=== PATIENT | male | born 2000 | race Two or more races ===

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

== ENCOUNTER 2024-02-03 09:33 | Emergency (ER) | payer OTHER ==
[~2024-02-03] VITALS: Ht 162.6 cm; Wt 55.0 kg
[2024-02-03 10:02] VITALS: BP 151/93; PULSE 105; RESP 18; O2SAT 98
== END 2024-02-03 11:42 | disposition left against medical advice (07) ==
LOC: ER 09:33
DX: R23.8 Other skin changes (principal); Z53.21 Procedure and treatment not carried out due to patient leaving prior to being seen by health care provider

== ENCOUNTER 2024-03-02 22:54 | Emergency (ER) | payer OTHER ==
[~2024-03-02] VITALS: Ht 162.6 cm; Wt 58.1 kg
[2024-03-02 23:00] VITALS: TEMP 97.8
[2024-03-02] MEDS: fentaNYL CITRATE 100 MCG/2 ML VL IV ONE (23:54)
[2024-03-03] VITALS: BP 143/93; PULSE 94; RESP 15; O2SAT 94
[2024-03-03] MEDS: ONDANSETRON HCL 4 MG/2 ML VIAL IV ONE (00:14)
[2024-03-03] MEDS: ONDANSETRON HCL 4 MG/2 ML VIAL ONE (00:15)
== END 2024-03-03 00:30 | disposition home or self-care (01) ==
LOC: ER 22:54
DX: M24.412 Recurrent dislocation, left shoulder (principal); F17.210 Nicotine dependence, cigarettes, uncomplicated; F15.90 Other stimulant use, unspecified, uncomplicated; W18.39XA Other fall on same level, initial encounter; Y93.B2 Activity, push-ups, pull-ups, sit-ups; Y92.89 Other specified places as the place of occurrence of the external cause; Y99.8 Other external cause status
CPT/HCPCS: 23650; 73020; 73030; 96374; 96375; 99284; J2405; J3010; 94762

== ENCOUNTER 2024-04-02 16:29 | Emergency (ER) | payer OTHER ==
[~2024-04-02] VITALS: Ht 162.6 cm; Wt 60.8 kg
[2024-04-02 17:00] VITALS: PULSE 103; RESP 14; TEMP 97.9; O2SAT 96
[2024-04-02] MEDS: ETOMIDATE (2MG/ML) 20ML VIAL IV ONE ×2 (17:15→17:20)
[2024-04-02] MEDS ORDERED: HYDR-4902 PO (17:38)
[2024-04-02 18:00] VITALS: BP 143/89; PULSE 100; RESP 18; O2SAT 100
== END 2024-04-02 18:10 | disposition home or self-care (01) ==
LOC: ER 16:29
DX: S43.005A Unspecified dislocation of left shoulder joint, initial encounter (principal); F17.210 Nicotine dependence, cigarettes, uncomplicated; F12.10 Cannabis abuse, uncomplicated; W03.XXXA Other fall on same level due to collision with another person, initial encounter; Y93.89 Activity, other specified; Y92.89 Other specified places as the place of occurrence of the external cause; Y99.8 Other external cause status
CPT/HCPCS: 23650; 73020; 99152

== ENCOUNTER 2024-06-12 22:03 | Emergency (ER) | payer OTHER ==
[~2024-06-12] VITALS: Ht 162.6 cm; Wt 54.5 kg
[2024-06-12] MEDS: KETAMINE 50mg/ML 10ml Vial (500mg/10ml) IV ONE (00:39)
[~2024-06-12 22:03] MED LIST: HYDR-4902 PO
--- NOTE | 2024-06-12 22:41 | ED.PDOC ---
Musculoskeletal HPI Comments 24-year-old male came to ER due to left shoulder pain. Patient was doing wrestling earlier, when he accidentally popped his left shoulder. States he dislocated his left shoulder 3 times already. Patient feels and knows that he dislocated his left shoulder again Chief Complaint: Upper Extremity Time Seen by MD: 22:39 Primary Care Provider: UNKNOWN Reviewed Notes: Nurses Notes Allergies: Coded Allergies: NO KNOWN ALLERGIES (Unverified , 01/06/13) Home Meds Active Scripts Ibuprofen (Ibuprofen) 600 Mg Tab, 1 TAB PO TID PRN for 5 Days, #15 TAB Prov:RICO REBOLLEDO MD 06/13/24 Acetaminophen (Acetaminophen Er) 650 Mg Tab, 650 MG PO TIDPRN PRN for 5 Days, #1 5 TAB Prov:RICO REBOLLEDO MD 06/13/24 Hydrocodone-Acetaminophen (Hydrocodone Bitartrate/AC 5-325 mg) 1 Tab Tab, 1 TAB PO Q8HP PRN for 5 Days, #15 TAB Prov:GENEVA SLAUGHTER MD 04/02/24 Information Source: Patient Mode of Arrival: Ambulatory Location: Left Extremity Location: Shoulder Timing: Hours Prehospital treatment: None Severity: Moderate Able to Move Extremity: No Bear Weight: Limited Pain: Moderate Hand Dominance: Right Mechanism: Hyperextension Circumstances: Sporting Onset of Symptoms: After Trauma Symptoms: Swelling, Pain Associated signs and symptoms: Shoulder pain (left) Review of Systems REVIEW OF SYSTEMS: No fever, no chills, or fatigue HEENT: No sore throat, no earache, no congestion, no neck pain. Cardiac: No chest pain. No palpitations. Lungs: No shortness of breath, no cough. GI: No nausea, no vomiting, no diarrhea, no constipation, no abdominal pain : No dysuria, frequency, or urgency. No hematuria. Musculoskeletal: (+) left shoulder pain and deformity, no extremity edema. Skin: No rash, no itching. Neuro: No headache, no dizziness, no weakness Vital Signs Vital Signs Date Time Temp Pulse Resp B/P (MAP) Pulse Ox O2 Delivery O2 Flow Rate FiO2 06/13/24 01:50 104 19 133/83 (100) 100 06/13/24 00:38 2.0 28 06/12/24 23:10 Room Air* 06/12/24 23:10 98.7 98.7 Physical Exam General: Awake, alert and oriented. No acute distress. Skin: Skin in warm, dry and intact without rashes or lesions. HEENT: The head is normocephalic and atraumatic. Conjunctivae are clear without exudates or hemorrhage. Sclera is non-icteric. Neck: Normal range of motion. No JVD. Cardiac: Regular rate Respiratory: No signs of respiratory distress. No Stridor. Extremities: Left shoulder with obvious deformity at the deltoid areas suggestive of anterior dislocation. distal pulses, sensation and strength intact. Neurological: The patient is awake, alert and oriented to person, place, and time with normal speech. Speech is clear. There is no facial asymmetry. Psychiatric: Appropriate mood and affect. Good judgement and insight. No visual or auditory hallucinations. No suicidal or homicidal ideation. Past Medical History PAST MEDICAL HISTORY: Denies Past Medical History (Other): Left shoulder dislocation Surgical History: Denies all surgeries Family History Family History: Reviewed,noncontributory to illness, Unknown Social History Smoker: Cigarettes Alcohol: Occasionally Drugs: Marijuana Lives In: Home Was a procedure done? Was a procedure done?: Yes Sedation Sedation?: Yes Informed consent obtained: Yes Sedation start time: 00:39 Sedation end time: 01:00 Sedation total time: 20 min Reduction Indication: Dislocation (left shoulder) Sedation: Consents obtained, Sedation as ordered Intra-articular anesthetic nicole: Yes Post-reduction x-ray show: Reduction Informed consent obtained: Yes Risks/benefits/alt described: Yes Differential Diagnosis EXT Differential Diagnosis: Fracture, Sprain, Dislocation X-Ray, Labs, Meds, VS Vital Signs Date Time Temp Pulse Resp B/P (MAP) Pulse Ox O2 Delivery O2 Flow Rate FiO2 06/13/24 01:50 104 19 133/83 (100) 100 06/13/24 01:05 111 16 136/93 (107) 99 06/13/24 00:59 109 19 150/97 (114) 96 06/13/24 00:56 119 22 136/77 (96) 97 06/13/24 00:50 122 32 157/105 (122) 97 06/13/24 00:46 152 32 174/110 (131) 100 06/13/24 00:39 95 18 130/82 (98) 98 06/13/24 00:38 120 22 98 2.0 28 107 24 99 116 98 06/13/24 00:36 97 18 153/102 (119) 98 06/12/24 23:49 104 18 147/94 06/12/24 23:19 95 14 128/60 06/12/24 23:10 97 16 99 Room Air* 0 21 06/12/24 23:10 98.7 95 19 130/82 (98) 98 98.7 06/12/24 22:33 98.6 105 19 130/85 (100) 98 Current Medications Medications (Trade) Dose Ordered Sig/Fernanda Route Start Time Stop Time Status Last Admin Lorazepam (Ativan Inj) 2 mg ONCE ONCE IM 06/12/24 22:45 06/12/24 22:46 DC 06/12/24 22:45 Morphine Sulfate 2 mg ONCE ONCE IV 06/12/24 23:15 06/12/24 23:16 DC 06/12/24 23:19 Ketamine HCl (Ketalar) 50 mg ONCE ONCE IV 06/12/24 23:30 06/12/24 23:31 DC 06/12/24 00:39 Propofol (Diprivan) 50 mg ONCE ONCE IV 06/13/24 01:00 06/13/24 01:01 DC 06/13/24 01:29 Propofol (Diprivan) 30 mg ONCE ONCE IV 06/13/24 01:30 06/13/24 01:31 DC 06/13/24 01:31 Ondansetron HCl (Zofran) 4 mg ONCE ONCE IM 06/13/24 02:00 06/13/24 02:01 DC 06/13/24 02:10 Time of 1ST Reevaluation: 22:37 Reevaluation 1ST: Unchanged Patient Education/Counseling: Diagnosis, Treatment Family Education/Counseling: No Family Present Departure 1 Departure Time of Disposition: 02:05 Impression: Primary Impression: Recurrent dislocation, left shoulder Disposition: 01 HOME / SELF CARE / HOMELESS Condition: Stable Additional Instructions: ED DISCHARGE INSTRUCTIONS Instructions: Please read all instructions provided in this packet carefully. Although you have been discharged from the Emergency Department, this does not mean that you have a "clean bill of health". This is why you must return to the ED without fail if any new or worsening symptoms (especially if your symptoms include chest pain, trouble breathing, abdominal pain, fever, headache, confusion, trouble seeing, or trouble walking) It is also very important that you see a primary care doctor within the next 3-5 days to follow up. Is very important that you follow up with the primary care provider, you will need a referral to see an web analytics specialist for further treatment of your left shoulder. If you are unable to get an appointment, return to the ED for re-evaluation. Dislocated Shoulder: Care Instructions Overview When the upper arm comes out of the shoulder socket, it is called a dislocated shoulder. After the doctor puts the shoulder back in place, the doctor may put your arm in a sling or brace to keep it from moving. Exercise and physical therapy can help your shoulder get strong and move normally again. It may take up to a year for your shoulder to heal and be pain free. If your shoulder keeps coming out of place, talk to your doctor about surgery. It can prevent dislocations. You may have had a sedative to help you relax. You may be unsteady after sedation. It can take a few hours for the effects to wear off. Side effects of sedation may include nausea, vomiting, and feeling sleepy or tired. The doctor has checked you carefully, but problems can develop later. If you notice any problems or new symptoms, get medical treatment right away. Follow-up care is a ashraf part of your treatment and safety. Be sure to make and go to all appointments, and call your doctor if you are having problems. It's also a good idea to know your test results and keep a list of the medicines you take. How can you care for yourself at home? If the doctor gave you a sedative: For 24 hours, don't do anything that requires attention to detail. This includes going to work, making important decisions, or signing any legal documents. It takes time for the medicine's effects to completely wear off. For your safety, do not drive or operate any machinery that could be dangerous. Wait until the medicine wears off and you can think clearly and react easily. If your doctor put your arm in a sling or shoulder immobilizer, wear it as directed. Take pain medicines exactly as directed. If the doctor gave you a prescription medicine for pain, take it as prescribed. If you are not taking a prescription pain medicine, ask your doctor if you can take an [id number] medicine. Put ice or a cold pack on your shoulder for 10 to 20 minutes at a time. Try to do this every 1 to 2 hours for the next 3 days (when you are awake). Put a thin cloth between the ice and your skin. You may use warm packs after the first 3 days for 15 to 20 minutes at a time. This can ease pain. If your doctor gave you exercises to do at home, do them exactly as your doctor told you. Do not do anything that makes the pain worse. When should you call for help? Call 911 anytime you think you may need emergency care. For example, call if: You have trouble breathing. You passed out (lost consciousness). Call your doctor now or seek immediate medical care if: You have new or worse nausea or vomiting. You have new or worse pain. Your hand or fingers are cool or pale or change color. You have tingling, weakness, or numbness in your hand or fingers. Watch closely for changes in your health, and be sure to contact your doctor if: You do not get better as expected. Credits for Dislocated Shoulder: Care Instructions Current as of: December 31, 2023 Author: [employer] Staff Clinical Review Board All [employer] education is reviewed by a team that includes physicians, nurses, advanced practitioners, registered dieticians, and other healthcare profe ssionals. e-Prescriptions Ibuprofen (Ibuprofen) 600 Mg Tab 1 TAB PO TID PRN for 5 Days, #15 TAB Prov: RICO REBOLLEDO MD 06/13/24 Acetaminophen (Acetaminophen Er) 650 Mg Tab 650 MG PO TIDPRN PRN for 5 Days, #15 TAB Prov: RICO REBOLLEDO MD 06/13/24 Comments 24-year-old male who presented to the emergency department with left shoulder dislocation. Successful reduction performed in the under procedural sedation. Patient observed in the ED, he is fully awake alert, ambulating without difficulty prior to discharge. Distal pulses, sensation and strength intact pos tprocedure. He is advised to follow up with PCP and Orthopedics, return to the emergency department with any new, worsening or concerning symptoms - I reviewed the following notes from the pt's past medical encounters: N/A The following tests were ordered, and results were reviewed by me: (See diagnostic results section) The following test were independently interpreted by me: Left shoulder x-ray, chest x-ray Additional information was gathered from interviewing the following independent historians: (N/A) I reviewed and agreed with the following test results read by other providers: N/A I discussed treatments and results with medical personnel and: N/A Decision regarding hospitalization or escalation of hospital level of care: Risks and benefits of admission for further treatment of patient's condition was considered however due to patient's stable condition patient will be discharged to follow up closely or return to care for worsening of condition or inability to follow up. Critical Care Note Critical Care Time?: No Stability Stability form required: No I personally scribed for RICO REBOLLEDO MD ([email or web address]) on 06/12/24 at 22:41. Electronically submitted by Migel Benz ([email or web address]). I personally scribed for RICO REBOLLEDO MD ([email or web address]) on 06/12/24 at 23:08. Electronically submitted by Migel Benz ([email or web address]). RICO REBOLLEDO MD Jun 12, 2024 22:41
[2024-06-12] MEDS: LORazepam 2MG/ML-1ML VIAL IM ONE (22:45)
[2024-06-12 23:10] VITALS: PULSE 97; RESP 16; TEMP 98.7; O2SAT 99
--- NOTE | 2024-06-12 23:10 | DVH ---
EXAMINATION: AP portable chest radiograph CLINICAL HISTORY: Left shoulder COMPARISON: Left shoulder radiographs 04/02/2024. FINDINGS: Right lateral thorax partially excluded. Anterior inferior dislocation of the left shoulder is noted. No dominant consolidations in the visualized lung trinh. No definite pleural effusions or pneumothor ax. Apparent mild prominence of the cardiac silhouette likely in part exaggerated by technique. IMPRESSION: Anterior and inferior left shoulder dislocation.
[2024-06-12] MEDS: MORPHINE SULFATE INJ 2 MG/ml SYRG ONE (23:18)
[2024-06-12] MEDS: MORPHINE SULFATE INJ 2 MG/ml SYRG IV ONE (23:19)
--- NOTE | 2024-06-13 01:22 | DVH ---
CLINICAL INDICATION: Post shoulder reduction TECHNIQUE: 2 views of the left shoulder. Comparison: XY L SHOULDER 1V XRAY on DOS: 04/02/24, XY L SHOULDER 1V XRAY on DOS: 04/02/24, XY L SHOULD ER 1V XRAY on DOS: 03/03/24, XY L SHOULDER 2+ VIEW XRAY on DOS: 03/02/24 FINDINGS/IMPRESSION: There is no evidence of acute fracture or dislocation. Soft tissues are unremarkable.
[2024-06-13] MEDS: PROPOFOL 10 MG/ML 20 ML IV ONE ×2 (01:26→01:31)
[2024-06-13 01:50] VITALS: BP 133/83; PULSE 104; RESP 19; O2SAT 100
[2024-06-13] MEDS ORDERED: IBUP-1454 PO (02:06)
[2024-06-13] MEDS ORDERED: ACET650T12 PO (02:06)
[2024-06-13] MEDS: ONDANSETRON HCL 4 MG/2 ML VIAL IM ONE (02:10)
== END 2024-06-13 02:00 | disposition home or self-care (01) ==
LOC: ER 22:03
DX: S43.035A Inferior dislocation of left humerus, initial encounter (principal); F17.210 Nicotine dependence, cigarettes, uncomplicated; Z79.899 Other long term (current) drug therapy; X58.XXXA Exposure to other specified factors, initial encounter; Y93.72 Activity, wrestling; Y92.89 Other specified places as the place of occurrence of the external cause; Y99.8 Other external cause status
CPT/HCPCS: 23650; 71045; 73030; 96372; 96374; 99152; 99284; J2060; J2270; J2405; J2704

== ENCOUNTER 2024-07-18 20:43 | Emergency (ER) | payer OTHER ==
[~2024-07-18] VITALS: Ht 162.6 cm; Wt 58.8 kg
[~2024-07-18 20:43] MED LIST changes: +ACET650T12 PO; +IBUP-1454 PO
[2024-07-18] MEDS: KETOROLAC TROMETH 30 MG/ML 1ML VIAL IV ONE (21:09)
--- NOTE | 2024-07-18 21:09 | ED.PDOC ---
Musculoskeletal HPI Comments 24-year-old male who came to ER for left shoulder pain. Patient has history left shoulder dislocation. Has a ground level fall earlier, fell off his truck, landed badly on his left side, dislocating again his left shoulder 4x. Chief Complaint: Upper Extremity Time Seen by MD: 21:08 Primary Care Provider: UNKNOWN Reviewed Notes: Nurses Notes Allergies: Coded Allergies: NO KNOWN ALLERGIES (Unverified , 01/06/13) Home Meds Active Scripts Ibuprofen (Ibuprofen) 600 Mg Tab, 1 TAB PO TID PRN for 5 Days, #15 TAB Prov:RICO REBOLLEDO MD 06/13/24 Acetaminophen (Acetaminophen Er) 650 Mg Tab, 650 MG PO TIDPRN PRN for 5 Days, #15 TAB Prov:RICO REBOLLEDO MD 06/13/24 Hydrocodone-Acetaminophen (Hydrocodone Bitartrate/AC 5-325 mg) 1 Tab Tab, 1 TAB PO Q8HP PRN for 5 Days, #15 TAB Prov:GENEVA SLAUGHTER MD 04/02/24 Information Source: Patient Mode of Arrival: Ambulatory Location: Left Extremity Location: Shoulder Timing: Hours Prehospital treatment: None Severity: Moderate Able to Move Extremity: No Bear Weight: Limited Pain: Moderate Hand Dominance: Right Mechanism: Spontaneous Circumstances: Spontaneous Onset of Symptoms: After Trauma History of: Shoulder Dislocation Associated signs and symptoms: Shoulder pain (left) Past Medical History Past Medical History (Other): Recurrent left shoulder dislocation Surgical History: Denies all surgeries Family History Family History: Reviewed,noncontributory to illness, Unknown Social History Smoker: Cigarettes Alcohol: Heavy Drugs: Marijuana Lives In: Home Constitutional: denies: chills, diaphoresis, fatigue, fever, malaise, sweats, weakness, others EENTM: denies: blurred vision, double vision, ear bleeding, ear discharge, ear drainage, ear pain, ear ringing, eye pain, eye redness, hearing loss, mouth pain, mouth swelling, nasal discharge, nose bleeding, nose congestion, nose pain, photophobia, tearing, throat pain, throat swelling, voice changes, others Respiratory: denies: cough, hemoptysis, orthopnea, SOB at rest, shortness of breath, SOB with excertion, stridor, wheezing, others Cardiovascular: denies: chest pain, dizzy spells, diaphoresis, Dyspnea on exertion, edema, irregular heart beat, left arm pain, lightheadedness, palpitations, PND, syncope, others Gastrointestinal: denies: abdomen distended, abdominal pain, blood streaked bowels, constipated, diarrhea, dysphagia, difficulty swallowing, hematemesis, melena, nausea, poor appetite, poor fluid intake, rectal bleeding, rectal pain, vomiting, others Genitourinary: denies: burning, dysuria, flank pain, frequency, hematuria, incontinence, penile discharge, penile sore, pain, testicle pain, testicle swelling, urgency, others Neurological: denies: dizziness, fainting, headache, left sided numbness, left sided weakness, numbness, paresthesia, pre-existing deficit, right sided numbness, right sided weakness, seizure, speech problems, tingling, tremors, weakness, others Musculoskeletal: reports: joint pain (Left shoulder); denies: back pain, gout, joint swelling, muscle pain, muscle stiffness, neck pain, others Integumetry: denies: bruises, change in color, change in hair/nails, dryness, laceration, lesions, lumps, rash, wounds, others Allergic/Immunocompromised: denies: Difficulty Healing, Frequent Infections, Hives, Itching, others Hematologic/Lymphatic: denies: anemia, blood clots, easy bleeding, easy bruising, swollen glands, others Endocrine: denies: excessive hunger, excessive sweating, excessive thirst, excessive urination, flushing, intolerance to cold, intolerance to heat, unexplained weight gain, unexplained weight loss, others Physical Exam General Appearance: No Apparent Distress, Normal HEENT: Normal ENT Inspection, Pharynx Normal, TMs Normal Neck: Full Range of Motion, Non-Tender, Normal, Normal Inspection Respiratory: Chest Non-Tender, Lungs Clear, No Accessory Muscle Use, No Respiratory Distress, Normal Breath Sounds Cardiovascular: No Edema, No JVD, No Murmur, No Gallop, Normal Peripheral Pulses, Regular Rate/Rhythm Breast Exam: Deferred Gastrointestinal: No Organomegaly, Non Tender, No Pulsatile Mass, Normal Bowel Sounds, Soft Genitalia: Deferred Pelvic: Deferred Rectal: Deferred Extremities: No calf tenderness, Normal capillary refill, Normal inspection, Normal range of motion, Non-tender, No pedal edema Musculoskeletal : Location: Left Extremity Location: Shoulder (Severe tenderness with decreased range of motion and positive deformity) Apperance: Normal Neurologic: Alert, business analyst manager II-XII nml as Tested, No Motor Deficits, Normal Affect, Normal Mood, No Sensory Deficits Cerebellar Function: Normal Reflexes: Normal Skin: Dry, Normal Color, Warm Lymphatic: No Adenopathy Was a procedure done? Was a procedure done?: Yes Sedation Sedation?: Yes Informed consent obtained: Yes Sedation start time: 21:11 Sedation end time: 22:11 Sedation total time: 1 hour Reduction Indication: Dislocation (left shoulder) Sedation: Consents obtained Intra-articular anesthetic nicole: Yes Post-reduction x-ray show: Reduction Informed consent obtained: Yes Risks/benefits/alt described: Yes Differential Diagnosis EXT Differential Diagnosis: Fracture, Sprain, Dislocation, Strain X-Ray, Labs, Meds, VS Vital Signs Date Time Temp Pulse Resp B/P (MAP) Pulse Ox O2 Delivery O2 Flow Rate FiO2 07/18/24 22:05 113 15 100 5.0 114 19 99 111 99 07/18/24 20:57 98.3 146 22 166/103 (124) 97 Current Medications Medications (Trade) Dose Ordered Sig/Fernanda Route Start Time Stop Time Status Last Admin Ketorolac Tromethamine (Toradol Injection) 30 mg ONCE ONCE IV 07/18/24 21:15 07/18/24 21:26 DC 07/18/24 21:09 Sodium Chloride 1,000 ml @ 1,000 mls/hr Q1H ONCE IV 07/18/24 21:15 07/18/24 22:14 DC 07/18/24 21:45 Propofol (Diprivan) 200 mg ONCE ONCE IV 07/18/24 21:15 07/18/24 21:26 DC 07/18/24 21:50 [place] [id number] Ph: [phone] DIAGNOSTIC IMAGING Diagnostic Imaging Report : [id number] Signed [place] [id number] Ph: [phone] DIAGNOSTIC IMAGING Diagnostic Imaging Report : [id number] Signed PATIENT: BLANK FOWLER ACCT: [id number] UNIT: [id number] : 2000 LOC: ER ROOM / BED: / AGE / SEX: 24 / M ADM STATUS: REG ER SERVICE 08 ORDERING PHYSICIAN: MAT ANTON MD PROCEDURE(s): LSHD2 - L SHOULDER 2+ VIEW XRAY REASON: dislocation ORDER NUMBER(s): [id number], ACCESSION NUMBER(s): [id number] EXAMINATION: 2 views of the left shoulder CLINICAL HISTORY: dislocation COMPARISON: XY L SHOULDER 2+ VIEW XRAY on DOS: 06/13/24 Findings and impression: Anterior and inferior shoulder dislocation. No grossly displaced fracture fragments are evident on the provided views. ATED BY: SHEN WONG MD DICTATED DATE/TIME: 07/18/242210 SIGNED BY: SHEN WONG MD SIGNED DATE/TIME: 07/18/242210 CC: PATIENT: BLANK FOWLER ACCT: [id number] UNIT: [id number] : 2000 LOC: ER ROOM / BED: / AGE / SEX: 24 / M ADM STATUS: REG ER SERVICE 38 ORDERING PHYSICIAN: MAT ANTON MD PROCEDURE(s): RSHD - R SHOULDER 1V XRAY REASON: POST REDUCTION ORDER NUMBER(s): [id number], ACCESSION NUMBER(s): [id number] XY R SHOULDER 1V XRAY INDICATION: POST REDUCTION TECHNICAL DATA: 3 views were obtained of the right shoulder. COMPARISON: XY L SHOULDER 2+ VIEW XRAY on DOS: 06/13/24, XY L SHOULDER 1V XRAY on DOS: 04/02/24, XY L SHOULDER 1V XRAY on DOS: 04/02/24 Findings/impression: Interval reduction of the previously dislocated left glenohumeral joint. No obvious fractures. ATED BY: MANUEL LANDRY DO DICTATED DATE/TIME: 07/18/242211 SIGNED BY: MANUEL LANDRY DO SIGNED DATE/TIME: 07/18/242211 CC: Time of 1ST Reevaluation: 21:06 Reevaluation 1ST: Unchanged Patient Education/Counseling: Diagnosis, Treatment Family Education/Counseling: No Family Present Departure 1 Departure Time of Disposition: 22:48 Impression: Primary Impression: Recurrent dislocation, left shoulder Disposition: HOME / SELF CARE / HOMELESS Condition: Stable Additional Instructions: Reassessed patient, vital signs stable. Denies any new symptoms. Patient is able to tolerate PO and ambulate/be mobile at their baseline without concern. Risks and benefits of all medications given or prescribed, if any, discussed. All lab work, imaging and diagnostic studies were reviewed by me. The patient was counseled extensively on my clinical impression, diagnosis, expected course of the disease, and plan, including their follow-up care. Will discharge patient. Patient instructed to follow up with Primary Care Physician within 24-48 hours. Strict return precautions given for further exacerbation of symptoms or for new symptoms. The patient was given the opportunity to ask questions and all questions were answered by myself and the nursing/tech staff. Patient is in agreement with the care plan. The patient verbally expressed understanding of the discharge instructions, including the reasons to return to the Emergency Department. Discharged With: Self Critical Care Note Critical Care Time?: No Stability Stability form required: No Heart Score Heart Score: Heart Score Response (Comments) Value History N/A 0 EKG N/A 0 Age N/A 0 Risk Factors N/A 0 Troponin N/A 0 Total 0 I personally scribed for MAT ANTON MD ([email or web address]) on 07/18/24 at 21:09. Electronically submitted by Migel Benz ([email or web address]). I personally scribed for MAT ANTON MD ([email or web address]) on 07/18/24 at 21:27. Electronically submitted by Migel Benz ([email or web address]). I personally scribed for MAT ANTON MD ([email or web address]) on 07/18/24 at 21:46. Electronically submitted by Migel Benz ([email or web address]). MAT ANTON MD Jul 18, 2024 21:09
[2024-07-18 21:25] VITALS: PULSE 107; RESP 35; O2SAT 99
[2024-07-18 21:39] VITALS: TEMP 97.5
[2024-07-18] MEDS: SODIUM CHLORIDE 0.9% 1,000 ML IV ONE (21:45)
[2024-07-18] MEDS: PROPOFOL 10 MG/ML 20 ML IV ONE (21:50)
--- NOTE | 2024-07-18 22:14 | DVH ---
EXAMINATION: 2 views of the left shoulder CLINICAL HISTORY: dislocation COMPARISON: XY L SHOULDER 2+ VIEW XRAY on DOS: 06/13/24 Findings and impression: Anterior and inferior shoulder dislocation. No grossly displaced fracture fragments are evident on th e provided views.
--- NOTE | 2024-07-18 22:14 | DVH ---
XY R SHOULDER 1V XRAY INDICATION: POST REDUCTION TECHNICAL DATA: 3 views were obtained of the right shoulder. COMPARISON: XY L SHOULDER 2+ VIEW XRAY on DOS: 06/13/24, XY L SHOULDER 1V XRAY on DOS: 04/02/24, XY L S HOULDER 1V XRAY on DOS: 04/02/24 Findings/impression: Interval reduction of the previously dislocated left glenohumeral joint. No obv ious fractures.
[2024-07-18 23:00] VITALS: BP 127/76; PULSE 78; RESP 19; O2SAT 95
== END 2024-07-18 23:19 | disposition home or self-care (01) ==
LOC: ER 20:43
DX: M24.412 Recurrent dislocation, left shoulder (principal); F17.210 Nicotine dependence, cigarettes, uncomplicated; Z79.899 Other long term (current) drug therapy
CPT/HCPCS: 23650; 73020; 73030; 96361; 96374; 99152; 99153; 99285; J1885; J2704; J7030

== ENCOUNTER 2024-09-04 05:23 | Emergency (ER) | payer OTHER ==
[~2024-09-04] VITALS: Ht 162.6 cm; Wt 58.8 kg
[2024-09-04] MEDS ORDERED: MORPHINE SULFATE INJ 2 MG/ml SYRG IM ONE (05:45)
[2024-09-04 05:55] VITALS: PULSE 98; RESP 22; O2SAT 98
[2024-09-04] MEDS: MORPHINE SULFATE INJ 2 MG/ml SYRG IM ONE (06:02)
--- NOTE | 2024-09-04 06:17 | DVH ---
CLINICAL INDICATION: pain/injury TECHNIQUE: XY L SHOULDER 2+ VIEW XRAY Comparison: XY R SHOULDER 1V XRAY on DOS: 07/18/24, XY L SHOULDER 2+ VIEW XRAY on DOS: 07/18/24, XY L S HOULDER 2+ VIEW XRAY on DOS: 06/13/24, XY L SHOULDER 1V XRAY on DOS: 04/02/24, XY L SHOULDER 1V XRAY on DOS: 04/02/24 FINDINGS/IMPRESSION: : Significantly limited exam due to patient positioning and overlapping anatomy. There is apparent inferior and anterior subluxation of the humeral head with respect to the glenoid p rocess of the scapula consistent with anterior shoulder dislocation. No definite fractures identified, however the [id number] significantly limited for that purpose.
--- NOTE | 2024-09-04 06:32 | ED.PDOC ---
History of Present Illness HPI Comments 24M presents to the ER w/ prior Hx of recurring left shoulder dislocation and w/ a c/c of UE dislocation. Pt reports that he dislocated his left shoulder in July and the nurses had a "hard time" putting it back in. Pt reports that he was asleep this morning at 0200 w/ a possible tossing and turning while waking up w/ left shoulder pain. Denies chills, fever, N/V/D, SOB, CP or no other associated symptoms, modifiers, recent injuries or sick contacts at this time. Chief Complaint: Upper Extremity Time Seen by MD: 06:15 Primary Care Provider: UNKNOWN Reviewed Notes: Nurses Notes, Medications, Allergies Allergies: Coded Allergies: NO KNOWN ALLERGIES (Unverified , 01/06/13) Home Meds Active Scripts Ibuprofen (Ibuprofen) 600 Mg Tab, 1 TAB PO TID PRN for 5 Days, #15 TAB Prov:RICO REBOLLEDO MD 06/13/24 Acetaminophen (Acetaminophen Er) 650 Mg Tab, 650 MG PO TIDPRN PRN for 5 Days, #15 TAB Prov:RICO REBOLLEDO MD 06/13/24 Hydrocodone-Acetaminophen (Hydrocodone Bitartrate/AC 5-325 mg) 1 Tab Tab, 1 TAB PO Q8HP PRN for 5 Days, #15 TAB Prov:GENEVA SLAUGHTER MD 04/02/24 Information Source: Patient Mode of Arrival: Ambulatory Severity: Moderate Timing: Hours Duration: Since onset Prehospital treatment: None Past Medical History Past Medical History (Other): Recurring left shoulder dislocation Surgical History: Denies all surgeries Family History Family History: Reviewed,noncontributory to illness, Unknown Social History Smoker: Unknown Alcohol: Unknown Drugs: Unknown Lives In: Home Constitutional: reports: others (Left UE Dislocation); denies: chills, diaphoresis, fatigue, fever, malaise, sweats, weakness EENTM: denies: blurred vision, double vision, ear bleeding, ear discharge, ear drainage, ear pain, ear ringing, eye pain, eye redness, hearing loss, mouth pain, mouth swelling, nasal discharge, nose bleeding, nose congestion, nose pain, photophobia, tearing, throat pain, throat swelling, voice changes, others Respiratory: denies: cough, hemoptysis, orthopnea, SOB at rest, shortness of breath, SOB with excertion, stridor, wheezing, others Cardiovascular: denies: chest pain, dizzy spells, diaphoresis, Dyspnea on exertion, edema, irregular heart beat, left arm pain, lightheadedness, palpitations, PND, syncope, others Gastrointestinal: denies: abdomen distended, abdominal pain, blood streaked bowels, constipated, diarrhea, dysphagia, difficulty swallowing, hematemesis, melena, nausea, poor appetite, poor fluid intake, rectal bleeding, rectal pain, vomiting, others Genitourinary: denies: burning, dysuria, flank pain, frequency, hematuria, incontinence, penile discharge, penile sore, pain, testicle pain, testicle swelling, urgency, others Neurological: denies: dizziness, fainting, headache, left sided numbness, left sided weakness, numbness, paresthesia, pre-existing deficit, right sided num bness, right sided weakness, seizure, speech problems, tingling, tremors, weakness, others Musculoskeletal: denies: back pain, gout, joint pain, joint swelling, muscle pain, muscle stiffness, neck pain, others Integumetry: denies: bruises, change in color, change in hair/nails, dryness, laceration, lesions, lumps, rash, wounds, others Allergic/Immunocompromised: denies: Difficulty Healing, Frequent Infections, Hives, Itching, others Hematologic/Lymphatic: denies: anemia, blood clots, easy bleeding, easy bruising, swollen glands, others Endocrine: denies: excessive hunger, excessive sweating, excessive thirst, excessive urination, flushing, intolerance to cold, intolerance to heat, unexplained weight gain, unexplained weight loss, others Psychiatric: denies: anxiety, bipolar disorder, depression, hopeless, panic disorder, schizophrenia, sleepless, suicidal, others All Other Systems: Reviewed and Negative Physical Exam General Appearance: Moderate Distress, Normal HEENT: Normal ENT Inspection, Pharynx Normal, TMs Normal Neck: Full Range of Motion, Non-Tender, Normal, Normal Inspection Respiratory: Chest Non-Tender, Lungs Clear, No Accessory Muscle Use, No Respiratory Distress, Normal Breath Sounds Cardiovascular: No Edema, No JVD, No Murmur, No Gallop, Normal Peripheral Pulses, Regular Rate/Rhythm Breast Exam: Deferred Gastrointestinal: No Organomegaly, Non Tender, No Pulsatile Mass, Normal Bowel Sounds, Soft Genitalia: Deferred Pelvic: Deferred Rectal: Deferred Extremities: Decreased range of motion (Left upper extremity), No calf tenderness, Normal capillary refill, No pedal edema Musculoskeletal : Apperance: Normal Neurologic: Alert, 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 Was a procedure done?: Yes Sedation Sedation?: No Reduction Indication: Dislocation Sedation: Consents obtained, Sedation as ordered Intra-articular anesthetic nicole: No Post-reduction x-ray show: Reduction, Good Alignment Differential Dx Considerations may include: Dislocation Electrolyte imbalance X-Ray, Labs, Meds, VS Vital Signs Date Time Temp Pulse Resp B/P (MAP) Pulse Ox O2 Delivery O2 Flow Rate FiO2 09/04/24 07:30 77 11 142/96 (111) 99 09/04/24 07:25 116 13 157/99 (118) 100 09/04/24 07:20 79 22 145/96 (112) 100 09/04/24 07:18 73 15 135/89 (104) 100 09/04/24 07:18 74 23 99 2.0 28 75 15 97 105 99 09/04/24 06:43 98.0 79 20 129/92 (104) 98 98.0 09/04/24 06:32 75 15 129/92 09/04/24 06:02 98 22 132/99 09/04/24 05:55 98.0 98 22 132/99 (110) 98 98.0 09/04/24 05:55 98 22 98 Room Air* 0 21 09/04/24 05:41 97.9 100 22 127/97 (107) 96 97.9 Current Medications Medications (Trade) Dose Ordered Sig/Fernanda Route Start Time Stop Time Status Last Admin Morphine Sulfate 2 mg ONCE ONCE IM 09/04/24 06:00 09/04/24 06:01 DC 09/04/24 06:02 Etomidate 20 mg ONCE ONCE IV 09/04/24 06:30 09/04/24 06:31 DC 09/04/24 07:19 Patient alert. On examination left shoulder dislocation. Vitals stable. Answering questions. Reviewed his previous visit. Has had dislocations in the past. Was able to reduce the shoulder. X-ray prior to the reduction does show dislocation. X-ray reviewed shows good alignment. Pain-free. Explained to the patient. Was told to follow up with his primary care physician. Was told to come back if there is any problem. Time of 1ST Reevaluation: 06:45 Reevaluation 1ST: Improved Patient Education/Counseling: Diagnosis, Treatment, Prognosis Family Education/Counseling: No Family Present Departure 1 Departure Time of Disposition: 07:30 Impression: Primary Impression: Recurrent dislocation, left shoulder Disposition: 01 HOME / SELF CARE / HOMELESS Condition: Good Discharged With: Self Critical Care Note Critical Care Time?: No Stability Stability form required: No Heart Score Heart Score: Heart Score Response (Comments) Value History N/A 0 EKG N/A 0 Age N/A 0 Risk Factors N/A 0 Troponin N/A 0 Total 0 I personally scribed for YEE RADFORD MD ([email or web address]) on 09/04/24 at 06:32. Electronically submitted by Nicholas Bobby ([email or web address]). YEE RADFORD MD Sep 04, 2024 06:32
[2024-09-04] MEDS: ETOMIDATE (2MG/ML) 20ML VIAL IV ONE (06:38)
[2024-09-04 06:43] VITALS: TEMP 98
[2024-09-04 07:30] VITALS: BP 142/96; PULSE 77; RESP 11; O2SAT 99
--- NOTE | 2024-09-04 07:48 | DVH ---
EXAM: XY L SHOULDER 1V XRAY HISTORY: SHOULDER DISLOCATION COMPARISON: XY L SHOULDER 2+ VIEW XRAY on DOS: 09/04/24, XY R SHOULDER 1V XRAY on DOS: 07/18/24, XY L SH OULDER 2+ VIEW XRAY on DOS: 07/18/24, XY L SHOULDER 2+ VIEW XRAY on DOS: 06/13/24, XY L SHOULDER 1V XRA Y on DOS: 04/02/24 TECHNIQUE: AP view of the left shoulder was performed. FINDINGS/IMPRESSION: 1. Probable interval reduction of the left glenohumeral joint. Scapular y view should be performed t o confirm. 2. Hill-Sachs impaction fracture of the left humeral head.
== END 2024-09-04 07:54 | disposition home or self-care (01) ==
LOC: ER 05:23
DX: S43.015A Anterior dislocation of left humerus, initial encounter (principal); S43.035A Inferior dislocation of left humerus, initial encounter; Z98.890 Other specified postprocedural states; Z79.899 Other long term (current) drug therapy; X58.XXXA Exposure to other specified factors, initial encounter; Y93.89 Activity, other specified; Y92.89 Other specified places as the place of occurrence of the external cause; Y99.8 Other external cause status
CPT/HCPCS: 23650; 73020; 73030; 96372; 99285; J2270; 96374

== ENCOUNTER 2024-12-08 13:26 | Emergency (ER) | payer OTHER ==
[~2024-12-08] VITALS: Ht 162.6 cm; Wt 59.0 kg
--- NOTE | 2024-12-08 14:30 | ED.PDOC ---
History of Present Illness HPI Comments 24-year-old male presents with a chief complaint of left shoulder dislocation/pain. Patient states that he was reaching down to pick something up and his shoulder became dislocated. Patient reports that this is the 7th time this has happened. Patient is scheduled for surgery to repair his shoulder next week on . Chief Complaint: Upper Extremity Time Seen by MD: 14:24 Primary Care Provider: UNKNOWN Reviewed Notes: Medications, Allergies Allergies: Coded Allergies: NO KNOWN ALLERGIES (Unverified , 01/06/13) Home Meds Active Scripts Ibuprofen (Ibuprofen) 600 Mg Tab, 1 TAB PO TID PRN for 5 Days, #15 TAB Prov:RICO REBOLLEDO MD 06/13/24 Acetaminophen (Acetaminophen Er) 650 Mg Tab, 650 MG PO TIDPRN PRN for 5 Days, #15 TAB Prov:RICO REBOLLEDO MD 06/13/24 Hydrocodone-Acetaminophen (Hydrocodone Bitartrate/AC 5-325 mg) 1 Tab Tab, 1 TAB PO Q8HP PRN for 5 Days, #15 TAB Prov:GENEVA SLAUGHTER MD 04/02/24 Information Source: Patient Mode of Arrival: Ambulatory Severity: Moderate Timing: Hours Duration: Since onset Prehospital treatment: None Past Medical History PAST MEDICAL HISTORY: Denies Surgical History: Denies all surgeries Family History Family History: Reviewed,noncontributory to illness, Unknown Social History Smoker: Unknown Alcohol: Unknown Drugs: Unknown Lives In: Home Constitutional: denies: chills, diaphoresis, fatigue, fever, malaise, sweats, weakness, others EENTM: denies: blurred vision, double vision, ear bleeding, ear discharge, ear drainage, ear pain, ear ringing, eye pain, eye redness, hearing loss, mouth pain , mouth swelling, nasal discharge, nose bleeding, nose congestion, nose pain, photophobia, tearing, throat pain, throat swelling, voice changes, others Respiratory: denies: cough, hemoptysis, orthopnea, SOB at rest, shortness of breath, SOB with excertion, stridor, wheezing, others Cardiovascular: denies: chest pain, dizzy spells, diaphoresis, Dyspnea on exertion, edema, irregular heart beat, left arm pain, lightheadedness, palpitations, PND, syncope, others Gastrointestinal: denies: abdomen distended, abdominal pain, blood streaked bowels, constipated, diarrhea, dysphagia, difficulty swallowing, hematemesis, melena, nausea, poor appetite, poor fluid intake, rectal bleeding, rectal pain, vomiting, others Genitourinary: denies: burning, dysuria, flank pain, frequency, hematuria, incontinence, penile discharge, penile sore, pain, testicle pain, testicle swelling, urgency, others Neurological: denies: dizziness, fainting, headache, left sided numbness, left sided weakness, numbness, paresthesia, pre-existing deficit, right sided numbness, right sided weakness, seizure, speech problems, tingling, tremors, weakness, others Musculoskeletal: reports: muscle pain; denies: back pain, gout, joint pain, joint swelling, muscle stiffness, neck pain, others Integumetry: denies: bruises, change in color, change in hair/nails, dryness, laceration, lesions, lumps, rash, wounds, others Allergic/Immunocompromised: denies: Difficulty Healing, Frequent Infections, Hives, Itching, others Hematologic/Lymphatic: denies: anemia, blood clots, easy bleeding, easy bruising, swollen glands, others Endocrine: denies: excessive hunger, excessive sweating, excessive thirst, excessive urination, flushing, intolerance to cold, intolerance to heat, unexplained weight gain, unexplained weight loss, others Psychiatric: denies: anxiety, bipolar disorder, depression, hopeless, panic disorder, schizophrenia, sleepless, suicidal, others All Other Systems: Reviewed and Negative Physical Exam General Appearance: Moderate Distress, Thin HEENT: Normal ENT Inspection, Pharynx Normal, TMs Normal Neck: Full Range of Motion, Non-Tender, Normal, Normal Inspection Respiratory: Chest Non-Tender, Lungs Clear, No Accessory Muscle Use, No Respiratory Distress, Normal Breath Sounds Cardiovascular: No Edema, No JVD, No Murmur, No Gallop, Normal Peripheral Pulses, Regular Rate/Rhythm Breast Exam: Deferred Gastrointestinal: No Organomegaly, Non Tender, No Pulsatile Mass, Normal Bowel Sounds, Soft Genitalia: Deferred Pelvic: Deferred Rectal: Deferred Extremities: Decreased range of motion, No calf tenderness, Normal capillary refill, No pedal edema, Tender Musculoskeletal : Apperance: Normal Neurologic: Alert, 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 Was a procedure done?: Yes Sedation Sedation?: Yes Informed consent obtained: Yes Sedation start time: 14:45 Sedation end time: 15:20 Sedation total time: 35 Reduction Indication: Dislocation (Left shoulder dislocation) Sedation: Consents obtained, Sedation as ordered Intra-articular anesthetic nicole: No Post-reduction x-ray show: Reduction, Good Alignment, Acceptable Alignment Informed consent obtained: Yes Risks/benefits/alt described: Yes Differential Dx Considerations may include: Left shoulder dislocation X-Ray, Labs, Meds, VS Vital Signs Date Time Temp Pulse Resp B/P (MAP) Pulse Ox O2 Delivery O2 Flow Rate FiO2 12/08/24 15:13 80 17 100 2.0 28 81 21 100 89 100 12/08/24 14:46 67 20 127/75 12/08/24 13:56 97.6 103 19 157/95 (115) 98 97.6 Current Medications Medications (Trade) Dose Ordered Sig/Fernanda Route Start Time Stop Time Status Last Admin Sodium Chloride 1,000 ml @ 1,000 mls/hr Q1H ONCE IV 12/08/24 14:30 12/08/24 15:29 DC 12/08/24 14:46 Ondansetron HCl (Zofran) 4 mg ONCE ONCE IV 12/08/24 14:30 12/08/24 14:31 DC 12/08/24 14:40 Morphine Sulfate 4 mg ONCE ONCE IV 12/08/24 14:30 12/08/24 14:31 DC 12/08/24 14:46 Time of 1ST Reevaluation: 14:54 Reevaluation 1ST: Unchanged Patient Education/Counseling: Diagnosis, Treatment, Need For Follow Up Family Education/Counseling: No Family Present SEPSIS Sepsis Screen Date sepsis recognized/suspect: Dec 08, 2024 Time Sepsis recognized/suspect: 1344 Recent Procedure: No On Antibiotic Therapy: No Respiratory Rate >20: No Heart Rate >90: No Temp<36 C (96.8 F) or >38.3 C: No SBP <90 or MAP <65 mmHG: No New Acute Mental Status Change: No Is the patient on CPAP, BIPAP,: No Physician Orders L Shoulder 2+ View Xray (12/08/24 14:25) L Shoulder 1v Xray (12/08/24 15:14) Vital Signs Date Time Temp Pulse Resp B/P (MAP) Pulse Ox O2 Delivery O2 Flow Rate FiO2 12/08/24 15:13 80 17 100 2.0 28 81 21 100 89 100 12/08/24 14:46 67 20 127/75 12/08/24 13:56 97.6 103 19 157/95 (115) 98 97.6 Medications Medications Dose Ordered Sig/Fernanda Route Start Time Stop Time Status Last Admin Dose Admin Morphine Sulfate 4 mg ONCE ONCE IV 12/08/24 14:30 12/08/24 14:31 DC 12/08/24 14:46 Ondansetron HCl 4 mg ONCE ONCE IV 12/08/24 14:30 12/08/24 14:31 DC 12/08/24 14:40 Sodium Chloride 1,000 ml @ 1,000 mls/hr Q1H ONCE IV 12/08/24 14:30 12/08/24 15:29 DC 12/08/24 14:46 Departure 1 Departure Time of Disposition: 16:33 (Patient had a left shoulder dislocation. It was reduced in the ER. We will discharge patient with outpatient follow up) Impression: Primary Impression: Recurrent dislocation, left shoulder Disposition: 01 HOME / SELF CARE / HOMELESS Condition: Stable Referrals: MARCELINO MORRISON MD Additional Instructions: You dislocated your shoulder. It was reduced in the ER. You were placed in a sling for comfort. For pain you can take the followinam: Ibuprofen 400mg with food Noon: Acetaminophen 1000mg 4pm: Ibuprofen 400mg with food 8pm: Acetaminophen 1000mg You were referred to an orthopedic surgeon to ensure you are healing well. Please call for an appointment within one week. If your symptoms worsen or you have any other concerns then please return to the ER. Discharged With: Self Critical Care Note Critical Care Time?: No Stability Stability form required: No Heart Score Heart Score: Heart Score Response (Comments) Value History N/A 0 EKG N/A 0 Age N/A 0 Risk Factors N/A 0 Troponin N/A 0 Total 0 I personally scribed for VAL ESPINOZA MD ([email or web address]) on 12/08/24 at 14:30. Electronically submitted by David Elmore ([email or web address]). VAL ESPINOZA MD Dec 08, 2024 14:30
[2024-12-08] MEDS: ONDANSETRON HCL 4 MG/2 ML VIAL IV ONE (14:40)
[2024-12-08 14:46] VITALS: TEMP 98.7
[2024-12-08] MEDS: MORPHINE SULFATE 4 MG/ML SYR/VIAL IV ONE (14:46)
[2024-12-08] MEDS: SODIUM CHLORIDE 0.9% 1,000 ML IV ONE (14:46)
[2024-12-08 14:50] VITALS: PULSE 67; RESP 14; O2SAT 99
--- NOTE | 2024-12-08 15:18 | DVH ---
CLINICAL INDICATION: c/f shoulder dislocation TECHNIQUE: 2 radiographic views of the left shoulder were obtained. Comparison: XY L SHOULDER 1V XRAY on DOS: 09/04/24, XY L SHOULDER 2+ VIEW XRAY on DOS: 09/04/24, XY R ANDERSON ULDER 1V XRAY on DOS: 07/18/24 FINDINGS/IMPRESSION: Anterior dislocation. No fracture seen. The visualized joint space is well maintained. The alignment is anatomical. There is no radiopaque foreign body.
[2024-12-08] MEDS: PROPOFOL 10 MG/ML 20 ML IV ONE (15:27)
--- NOTE | 2024-12-08 15:42 | DVH ---
CLINICAL INDICATION: post reduction TECHNIQUE: 1 radiographic views of the left shoulder were obtained. Comparison: XY L SHOULDER 2+ VIEW XRAY on DOS: 12/08/24, XY L SHOULDER 1V XRAY on DOS: 09/04/24, XY L ANDERSON ULDER 2+ VIEW XRAY on DOS: 09/04/24 FINDINGS/IMPRESSION: There is no evidence of acute fracture or dislocation. Hill-Sachs deformity of the greater tuberosity. The visualized joint space is well maintained. The alignment is anatomical. There is no radiopaque foreign body.
[2024-12-08 16:26] VITALS: BP 92/51; PULSE 51; RESP 14; O2SAT 99
== END 2024-12-08 18:24 | disposition home or self-care (01) ==
LOC: ER 13:26
DX: S43.005A Unspecified dislocation of left shoulder joint, initial encounter (principal); M24.412 Recurrent dislocation, left shoulder; Z79.899 Other long term (current) drug therapy; Y33.XXXA Other specified events, undetermined intent, initial encounter; Y93.89 Activity, other specified; Y92.89 Other specified places as the place of occurrence of the external cause; Y99.0 Civilian activity done for income or pay
CPT/HCPCS: 23650; 73020; 73030; 96361; 96374; 96375; 99152; 99153; 99285; J2270; J2405; J2704; J7030